=== PATIENT | female | born 1995 | race Caucasian/White ===

== ENCOUNTER 2016-04-29 14:07 | Observation (INO) | payer OTHER ==
[2016-04-29] MEDS ORDERED: Sodium Chloride 0.9% 1000 ML 1,000 ML IV SCH (15:00)
--- NOTE | 2016-04-29 15:29 | XRAY ---
Indication: Hematuria, back pain, and vomiting. Multiple contiguous axial images obtained through the abdomen and pelvis without contrast as ordered. Comparison: None Lung bases are clear. Heart is not enlarged. Noncontrasted stomach and bowel loops appear nonobstructed. Normal appendix. No free fluid/air. Remaining liver, gallbladder, pancreas, spleen, adrenal glands, kidneys, ureters, bladder, uterus, and aorta appear unremarkable for noncontrast exam. Osseous structures intact. Impression: Negative CT abdomen/pelvis without contrast exam. CT DI 9.64
--- NOTE | 2016-04-29 15:30 | XRAY ---
Indication: Hematuria, back pain, and vomiting. Comparison: None PA/lateral chest demonstrate normal heart, lungs, and bony thorax.
[2016-04-29 15:32] LABS: Mean Cell Volume 89.3 fl (78-100); Mean Corpuscular Hemoglobin 29.5 pg (26-32); Mean Platelet Volume 9.8 fl (6-9.5); Platelet Count 261 K/mm3 (150-450); Red Blood Count 4.41 M/mm3 (4.1-5.4); Red Cell Distribution Width 12.6 % (11.5-14.0); White Blood Count 12.4 K/mm3 (4.0-10.5)
[2016-04-29 15:59] LABS: ALBUMIN 3.4 g/dL (3.4-5.0); ALKALINE PHOSPHATASE 45 U/L (46-116); ANION GAP 14.2 MEQ/L (5-15); BILIRUBIN,TOTAL 0.2 mg/dL (0.2-1.0); BLOOD UREA NITROGEN 7 mg/dL (9-20); CHLORIDE 101 mEq/L (98-107); Carbon Dioxide 23.5 mEq/L (21-32); Glucose 87 MG/DL (70-110); Potassium 3.8 mEq/L (3.5-5.1); SGOT/AST 13 U/L (15-37); SODIUM 135 mEq/L (136-145); Total Protein 7.9 gm/dL (6.4-8.2)
[2016-04-29 16:09] LABS: SGPT/ALT 14 U/L (12-78)
[2016-04-29 16:28] LABS: BAND 2 % (0.0-2.0); Total Cells Counted 100
[2016-04-29 16:35] LABS: Platelet Estimate NORMAL (NORMAL)
[2016-04-29 16:37] LABS: ANISOCYTOSIS 1+
[2016-04-29] MEDS: Sodium Chloride 0.9% 1000 ML 1,000 ML IV SCH (17:47)
[2016-04-29] MEDS ORDERED: Zofran 2 MG/ML MULTI DOSE VIAL 20 ML IV PRN (17:59)
[2016-04-29] MEDS ORDERED: ROCEPHIN 1 Gm-D5w 50 ml Bag** 50 ML IV SCH (18:00)
--- NOTE | 2016-04-29 18:06 | PCM.HP ---
History of Present Illness - Chief Complaint Chief Complaint: hematuria, back pain History of Present Illness: is a 20 year old female who has been feeling ill for several weeks with a cough. For the past 3 days she has been vomiting with fever up to 102. Her cough is actually a little better. She is not toelrating much po. She noticed her urine was brown today and she came to . I was contacted and agreed with admission. Pt was c/o some R lower back pain. Pt had UA in February with RBC. - Review of Systems Constitutional: Fever, Fatigue Respiratory: Cough, Wheezing Abdominal/Gastrointestinal: Nausea, Vomiting Genitourinary Symptoms: Hematuria, Other (brown urine) Musculoskeletal: Back Pain All Other Systems: Reviewed and Negative Medications & Allergies Home Medications: Home Medication List Armodafinil [Nuvigil] 150 mg PO DAILY 04/29/16 [History Confirmed 04/29/16] Norelgestromin/Ethin.estradiol [Xulane Patch] 1 patch TOP WEEKLY 04/29/16 [ History Confirmed 04/29/16] - Past Medical History Neurological History: No Pertinent History ENT History: No Pertinent History Cardiac History: No Pertinent History Respiratory History: No Pertinent History Endocrine Medical History: No Pertinent History Musculoskelatal History: No Pertinent History GI Medical History: No Pertinent History History: No Pertinent History Pyscho-Social History: Anxiety Reproductive Disorders: No Pertinent History - Female History Hx Last Menstrual Period: 04/08/16 Are you now?: No - Past Surgical History Past Surgical History: No - Social History Smoking Status: Never smoker Alcohol: None Drug Use: none - Physical Exam Vital Signs: Vital Signs - 24 hr Temp Pulse Resp BP Pulse Ox 04/29/16 16:31 98.9 F 104 H 20 119/80 95 General Appearance: no apparent distress Neurologic Exam: alert, oriented x 3, cooperative Eye Exam: eyes nml inspection Ears, Nose, Throat Exam: other (dry lips) Neck Exam: normal inspection, supple, No lymphadenopathy Respiratory Exam: wheezing (RLL), other (good air exchange), No crackles/rales, No rhonchi Cardiovascular Exam: regular rate/rhythm, normal heart sounds, No murmur Gastrointestinal/Abdomen Exam: soft, No tenderness, No distention, No guarding, No rebound Back Exam: normal inspection, other (nttp throughout), No CVA tenderness Extremity Exam: normal inspection, No pedal edema, No swelling Skin Exam: normal color, warm, dry Results - Labs Lab/Micro Results: Lab Results-Last 24 Hours 04/29/16 04/29/16 Range/Units 15:28 15:28 WBC 12.4 H (4.0-10.5) K/mm3 RBC 4.41 (4.1-5.4) M/mm3 Hgb 13.0 (12.0-16.0) gm/dl Hct 39.4 (35-47) % MCV 89.3 (78-100) fl MCH 29.5 (26-32) pg MCHC 33.0 (32-36) g/dl RDW 12.6 (11.5-14.0) % Plt Count 261 (150-450) K/mm3 MPV 9.8 H (6-9.5) fl Segmented Neutrophils 74 H (36.0-66.0) % Band Neutrophils 2 (0.0-2.0) % Lymphocytes (Manual) 20 L (24-44) % Monocytes (Manual) 4 (0.0-12.0) % Differential Comment ABNORMAL Platelet Estimate NORMAL (NORMAL) Anisocytosis 1+ Sodium 135 L (136-145) mEq/L Potassium 3.8 (3.5-5.1) mEq/L Chloride 101 (98-107) mEq/L Carbon Dioxide 23.5 (21-32) mEq/L Anion Gap 14.2 (5-15) MEQ/L BUN 7 L (9-20) mg/dL Creatinine 0.92 (0.55-1.30) mg/dl Estimated GFR > 60 ML/MIN Glucose 87 (70-110) MG/DL Calcium 8.8 (8.5-10.1) mg/dL Total Bilirubin 0.2 (0.2-1.0) mg/dL AST 13 L (15-37) U/L ALT 14 (12-78) U/L Alkaline Phosphatase 45 L (46-116) U/L Serum Total Protein 7.9 (6.4-8.2) gm/dL Albumin 3.4 (3.4-5.0) g/dL - Radiology Impressions Radiology Exams & Impressions: Radiology Procedures Category Date Time Status ABDOMEN AND PELVIS W/0 CONTRAS [CT] Urgent Exams 04/29/16 15:04 Completed CHEST 2 VIEWS (PA AND LAT) Urgent Exams 04/29/16 15:07 Completed Assessment/Plan (1) Dehydration Current Visit: Yes Status: Acute Assessment & Plan: IV fluids overnight, labs are not bad but urine with ketones, bilirubin, etc. Code(s): E86.0 - DEHYDRATION (2) UTI (urinary tract infection) Current Visit: Yes Status: Acute Assessment & Plan: treat for UTI pending ucx. Code(s): N39.0 - URINARY TRACT INFECTION, SITE NOT SPECIFIED (3) Hematuria Current Visit: Yes Status: Acute Assessment & Plan: Will recheck UA after UTI issue is resolved. CT abd/pelvis neg for nephrolithiasis. If persistent hematuria will refer to urology. Code(s): R31.9 - HEMATURIA, UNSPECIFIED (4) Vomiting Current Visit: Yes Status: Acute Assessment & Plan: none currently. Code(s): R11.10 - VOMITING, UNSPECIFIED (5) Wheezing Current Visit: Yes Status: Acute Assessment & Plan: albuterol nebs QID while here. Code(s): R06.2 - WHEEZING
[2016-04-29] MEDS: PROVENTIL 2.5 MG/3 ML NEB IH SCH (18:42)
[2016-04-30] MEDS: PROVENTIL 2.5 MG/3 ML NEB IH SCH ×3 (00:49→12:46)
[2016-04-30] MEDS: Sodium Chloride 0.9% 1000 ML 1,000 ML IV SCH ×2 (04:32→14:57)
[2016-04-30 05:40] LABS: BASOPHIL % 0.1 % (0.0-0.4); Eosinophil % 0.3 % (0.00-5.0); Lymphocytes % 21.7 % (24.0-44.0); Mean Cell Volume 90.4 fl (78-100); Mean Platelet Volume 10.6 fl (6-9.5); Monocytes % 11.9 % (0.0-12.0); Platelet Count 230 K/mm3 (150-450); Red Blood Count 3.84 M/mm3 (4.1-5.4); Red Cell Distribution Width 12.4 % (11.5-14.0); White Blood Count 10.9 K/mm3 (4.0-10.5)
[2016-04-30 05:49] LABS: Mean Corpuscular Hemoglobin 29.6 pg (26-32)
[2016-04-30 05:59] LABS: ANION GAP 12.7 MEQ/L (5-15); BLOOD UREA NITROGEN 6 mg/dL (9-20); CHLORIDE 105 mEq/L (98-107); Glucose 78 MG/DL (70-110); Potassium 3.8 mEq/L (3.5-5.1); SODIUM 138 mEq/L (136-145)
[2016-04-30] MEDS ORDERED: Zofran 4 MG/2 ML VIAL IV PRN (06:41)
--- NOTE | 2016-04-30 08:11 | PCM.NOTE ---
Date and Time: 04/30/16 08 Subjective Assessment: Pt has tolerated jello and popsicles. Did have nausea this morning. No more vomiting, no diarrhea. No abd pain. - Review of Systems Constitutional: No Fever, No Chills Abdominal/Gastrointestinal: Nausea, No Vomiting Objective Exam General Appearance: no apparent distress Neurologic Exam: alert, oriented x 3, cooperative Skin Exam: normal color, warm, dry Respiratory Exam: normal breath sounds, lungs clear, No crackles/rales, No rhonchi, No wheezing Cardiovascular Exam: regular rate/rhythm, normal heart sounds Gastrointestinal/Abdomen Exam: soft, other (hypoactive bowel sounds), No tenderness, No distention Back Exam: normal inspection OBJECTIVE DATA Vital Signs: Vital Signs - 24 hr Temp Pulse Resp BP Pulse Ox 04/30/16 07:16 98.4 F 90 18 107/53 98 04/30/16 07:02 82 18 100 04/30/16 04:00 98.1 F 109 H 18 102/59 100 04/30/16 00:00 98.4 F 121 H 19 116/76 99 04/29/16 20:00 98.8 F 89 15 107/65 98 04/29/16 18:42 89 15 98 04/29/16 16:31 98.9 F 104 H 20 119/80 95 Pain Assessment - Last Documented Pain Scale Used 0-10 Pain Scale Intake and Output: Intake & Output 04/27/16 04/28/16 04/29/16 04/30/16 11:59 11:59 11:59 11:59 Intake Total 2376 Output Total 2300 Balance 76 Weight 58.23 kg Lab Results: Lab Results-Last 24 Hours 04/29/16 04/29/16 04/30/16 Range/Units 15:28 15:28 04:00 WBC 12.4 H (4.0-10.5) K/mm3 RBC 4.41 (4.1-5.4) M/mm3 Hgb 13.0 (12.0-16.0) gm/dl Hct 39.4 (35-47) % MCV 89.3 (78-100) fl MCH 29.5 (26-32) pg MCHC 33.0 (32-36) g/dl RDW 12.6 (11.5-14.0) % Plt Count 261 (150-450) K/mm3 MPV 9.8 H (6-9.5) fl Gran % (36.0-66.0) % Lymphocytes % (24.0-44.0) % Monocytes % (0.0-12.0) % Eosinophils % (0.00-5.0) % Basophils % (0.0-0.4) % Segmented Neutrophils 74 H (36.0-66.0) % Band Neutrophils 2 (0.0-2.0) % Lymphocytes (Manual) 20 L (24-44) % Monocytes (Manual) 4 (0.0-12.0) % Basophils # (0-0.4) Differential Comment ABNORMAL Platelet Estimate NORMAL (NORMAL) Anisocytosis 1+ Sodium 135 L 138 (136-145) mEq/L Potassium 3.8 3.8 (3.5-5.1) mEq/L Chloride 101 105 (98-107) mEq/L Carbon Dioxide 23.5 24.0 (21-32) mEq/L Anion Gap 14.2 12.7 (5-15) MEQ/L BUN 7 L 6 L (9-20) mg/dL Creatinine 0.92 0.83 (0.55-1.30) mg/dl Estimated GFR > 60 > 60 ML/MIN Glucose 87 78 (70-110) MG/DL Calcium 8.8 7.9 L (8.5-10.1) mg/dL Total Bilirubin 0.2 (0.2-1.0) mg/dL AST 13 L (15-37) U/L ALT 14 (12-78) U/L Alkaline Phosphatase 45 L (46-116) U/L Serum Total Protein 7.9 (6.4-8.2) gm/dL Albumin 3.4 (3.4-5.0) g/dL 04/30/16 Range/Units 05:10 WBC 10.9 H (4.0-10.5) K/mm3 RBC 3.84 L (4.1-5.4) M/mm3 Hgb 11.4 L (12.0-16.0) gm/dl Hct 34.7 L (35-47) % MCV 90.4 (78-100) fl MCH 29.6 (26-32) pg MCHC 32.9 (32-36) g/dl RDW 12.4 (11.5-14.0) % Plt Count 230 (150-450) K/mm3 MPV 10.6 H (6-9.5) fl Gran % 66.0 (36.0-66.0) % Lymphocytes % 21.7 L (24.0-44.0) % Monocytes % 11.9 (0.0-12.0) % Eosinophils % 0.3 (0.00-5.0) % Basophils % 0.1 (0.0-0.4) % Segmented Neutrophils (36.0-66.0) % Band Neutrophils (0.0-2.0) % Lymphocytes (Manual) (24-44) % Monocytes (Manual) (0.0-12.0) % Basophils # 0.01 (0-0.4) Differential Comment Platelet Estimate (NORMAL) Anisocytosis Sodium (136-145) mEq/L Potassium (3.5-5.1) mEq/L Chloride (98-107) mEq/L Carbon Dioxide (21-32) mEq/L Anion Gap (5-15) MEQ/L BUN (9-20) mg/dL Creatinine (0.55-1.30) mg/dl Estimated GFR ML/MIN Glucose (70-110) MG/DL Calcium (8.5-10.1) mg/dL Total Bilirubin (0.2-1.0) mg/dL AST (15-37) U/L ALT (12-78) U/L Alkaline Phosphatase (46-116) U/L Serum Total Protein (6.4-8.2) gm/dL Albumin (3.4-5.0) g/dL Radiology Exams: Radiology Procedures Category Date Time Status ABDOMEN AND PELVIS W/0 CONTRAS [CT] Urgent Exams 04/29/16 15:04 Completed CHEST 2 VIEWS (PA AND LAT) Urgent Exams 04/29/16 15:07 Completed Assessment/Plan (1) Dehydration Current Visit: Yes Status: Acute Assessment & Plan: Resolved, on IV fluids currently. Code(s): E86.0 - DEHYDRATION (2) UTI (urinary tract infection) Current Visit: Yes Status: Acute Assessment & Plan: UCx pending. Code(s): N39.0 - URINARY TRACT INFECTION, SITE NOT SPECIFIED (3) Hematuria Current Visit: Yes Status: Acute Assessment & Plan: UA pending this morning. Plan is to f/u with urology, has had hematuria since February. Code(s): R31.9 - HEMATURIA, UNSPECIFIED (4) Vomiting Current Visit: Yes Status: Resolved Code(s): R11.10 - VOMITING, UNSPECIFIED (5) Wheezing Current Visit: Yes Status: Resolved Code(s): R06.2 - WHEEZING
[2016-04-30 08:28] LABS: Collection Type VOID
[2016-04-30 08:29] LABS: COMPLETE URINE MICROSCOPIC? YES
[2016-04-30] MEDS ORDERED: NORELGESTROMIN TOP SCH (08:45)
[2016-04-30] MEDS ORDERED: ETHIN ESTRADIOL TOP SCH (08:45)
[2016-04-30] MEDS: ROCEPHIN 1 Gm-D5w 50 ml Bag** 50 ML IV SCH (09:11)
[2016-04-30 09:24] LABS: Bacteria MODERATE /HPF (NEGATIVE); Epithelial Cells FEW /HPF (FEW); Mucus SLIGHT /HPF (NEGATIVE)
[2016-04-30] MEDS ORDERED: PATIENT OWN MEDICATION TOP SCH (10:00)
[2016-04-30] MEDS ORDERED: PROVENTIL 2.5 MG/3 ML NEB IH PRN (16:10)
[2016-05-01] MEDS: Sodium Chloride 0.9% 1000 ML 1,000 ML IV SCH (00:58)
[2016-05-01 05:30] VITALS: O2SAT 98
[2016-05-01] MEDS: ROCEPHIN 1 Gm-D5w 50 ml Bag** 50 ML IV SCH (09:14)
--- NOTE | 2016-05-01 09:35 | PCM.DS ---
Discharge Summary Date of Admission: 04/29/16 14:50 Admitting Physician: BREANNA NICHOLE Primary Care Provider: BREANNA NICHOLE Allergies Allergies No Known Allergies Allergy (Verified 04/29/16 19:34) Hospital Summary - Hospital Course Hospital Course: Pt admitted with vomiting, brown urine, labs OK, hematuria present. vomiting has resolved; she tolerated po last night. NO abd pain. She is set up for outpatient urology appointment in 2 days. - Vitals & Intake/Output Vital Signs: Vital Signs Temperature 98.8 F 05/01/16 07:19 Pulse Rate 77 05/01/16 07:19 Respiratory Rate 18 05/01/16 07:19 Blood Pressure 98/58 05/01/16 07:19 O2 Sat by Pulse Oximetry 98 05/01/16 07:19 Intake & Output: Intake & Output 04/28/16 04/29/16 04/30/16 05/01/16 11:59 11:59 11:59 11:59 Intake Total 2376 2663 Output Total 2300 3000 Balance 76 -337 Weight 58.23 kg - Lab Result Diagrams: 04/30/16 05:10 04/30/16 04:00 - Radiology Exams Ordered Rad Exams-Entire Visit: Radiology Procedures Category Date Time Status ABDOMEN AND PELVIS W/0 CONTRAS [CT] Urgent Exams 04/29/16 15:04 Completed CHEST 2 VIEWS (PA AND LAT) Urgent Exams 04/29/16 15:07 Completed - Procedures and Test Procedures and Tests throughout Hospitalization: Therapy Orders & Screens 04/29/16 19:00 Respiratory Nebulizer Q6H Comment: Diagnosis: hematuria, back pain 04/29/16 19:39 Respiratory Therapy Consult ROUTINE Comment: Reason For Exam: Diagnosis: hematuria, back pain 04/30/16 16:10 Respiratory Nebulizer UD Comment: ALBUTEROL Q4PRN Diagnosis: hematuria, back pain Discharge Exam General Appearance: no apparent distress Neurologic Exam: alert, oriented x 3, cooperative Skin Exam: normal color, warm, dry Respiratory Exam: normal breath sounds, lungs clear, No crackles/rales, No rhonchi, No wheezing Cardiovascular Exam: regular rate/rhythm, normal heart sounds, No murmur Gastrointestinal/Abdomen Exam: soft, No tenderness, No distention, No mass, No guarding, No rebound Extremity Exam: No pedal edema, No swelling Back Exam: normal inspection Final Diagnosis/Problem List - Final Discharge Diagnosis/Problem (1) Dehydration Current Visit: Yes Status: Resolved (2) UTI (urinary tract infection) Current Visit: Yes Status: Acute Assessment & Plan: Home on po antibiotics. UCx pending. Use alternate form of control ( condoms) while on keflex. (3) Hematuria Current Visit: Yes Status: Acute Assessment & Plan: Pt had hematuria in February. I discussed with her that although we found this in February and asked if she was menstruating at that time (she wasn't), we did not follow up on that immediately and that was an omission on my part. (4) Vomiting Current Visit: Yes Status: Resolved (5) Wheezing Current Visit: Yes Status: Resolved - Discharge Disposition: Home, Self-Care Condition: Stable Prescriptions: New Cephalexin Mh 500 mg [Keflex 500 mg] 500 mg PO QID #20 capsule Continue Armodafinil [Nuvigil] 150 mg PO DAILY Norelgestromin/Ethin.estradiol [Xulane Patch] 1 patch TOP WEEKLY Follow up with: BREANNA NICHOLE [Primary Care Provider] - 1 Week CARMELA CHEUNG NP [NON-STAFF PHY W/O PRIVILEGES] - 05/03/16 9:30 am
[2016-05-01 10:56] VITALS: BP 108/66; PULSE 87
== END 2016-05-01 11:08 | disposition home or self-care (01) ==
LOC: MED SURG 14:50
PROVIDERS: ADMIT Family Medicine; ATTEND Family Medicine
DX: E86.0 Dehydration (principal); N39.0 Urinary tract infection, site not specified; R06.2 Wheezing; F41.9 Anxiety disorder, unspecified
CPT/HCPCS: 36415; 71020; 74176; 80048; 80053; 81000; 85025; 87086; 94640; 94760; G0378; J0696; J2405

== ENCOUNTER 2018-02-16 16:36 | Emergency (ER) | payer BC, OTHER ==
[2018-02-16] MEDS ORDERED: Zofran 4 MG/2 ML VIAL IV ONE (17:06)
[2018-02-16] MEDS ORDERED: MORPHINE SULFATE 4 MG INJ IV ONE (17:06)
[2018-02-16] MEDS ORDERED: Sodium Chloride 0.9% 1000 ML 1,000 ML IV STA (17:06)
--- NOTE | 2018-02-16 17:11 | ERPHSYRPT ---
- History of Present Illness Time Seen by Provider: 02/16/18 17:02 Historian: patient Exam Limitations: no limitations Patient Subjective Stated Complaint: diarrhea and lower abd pain since last wed Triage Nursing Assessment: ambulated to room per self. skin w/d, color normal. abd soft but distended. hyperactive bowel sounds throughout. denies any urinary difficulty. Physician History: 22-year-old white female arrives with complaint of lower abdominal pain bilateral and loose stools symptoms since 5 days. She states she vomited one time. Patient has not had any fevers. Past medical history includes anxiety. Past surgical history negative. Social history denies tobacco alcohol or illicit drug use. Timing/Duration: day(s) (5 days) Activities at Onset: none Quality: cramping Abdominal Pain Onset Location: other (bilateral lower abdomen) Pain Radiation: no radiation Severity of Pain-Max: moderate Severity of Pain-Current: moderate Modifying Factors: Improves With: nothing Associated Symptoms: diarrhea, nausea, vomiting, No back, No chest pain, No diaphoresis, No fever/chills, No fatigue, No headache, No heartburn, No loss of appetite, No neck pain, No rash, No shortness of breath, No syncope Previous symptoms: no prior history Allergies/Adverse Reactions: No Known Allergies Allergy (Verified 02/16/18 16:43) Home Medications: Bupropion HCl 150 mg Sr [Wellbutrin SR 150 MG] 150 mg PO DAILY 02/16/18 [ History] Hydroxyzine HCl 25 mg [Atarax 25 mg] 25 mg PO DAILY 02/16/18 [History] Hx Tetanus, Diphtheria Vaccination/Date Given: No Hx Influenza Vaccination/Date Given: Yes Hx Pneumococcal Vaccination/Date Given: No - Review of Systems Constitutional: No Fever, No Chills Eyes: No Symptoms Ears, Nose, & Throat: No Symptoms Respiratory: No Cough, No Dyspnea Cardiac: No Chest Pain, No Edema, No Syncope Abdominal/Gastrointestinal: Abdominal Pain, Nausea, Vomiting, Diarrhea, No Constipation, No Hematemesis, No Hematochezia, No Melena, No Dysphagia, No Appetite Changes Genitourinary Symptoms: No Dysuria Musculoskeletal: No Back Pain, No Neck Pain Skin: No Rash Neurological: No Dizziness, No Focal Weakness, No Sensory Changes Psychological: No Symptoms Endocrine: No Symptoms All Other Systems: Reviewed and Negative - Past Medical History Pertinent Past Medical History: Yes Neurological History: No Pertinent History ENT History: No Pertinent History Cardiac History: No Pertinent History Respiratory History: No Pertinent History Endocrine Medical History: No Pertinent History Musculoskeletal History: No Pertinent History GI Medical History: No Pertinent History History: No Pertinent History Psycho-Social History: Anxiety Female Reproductive Disorders: No Pertinent History - Past Surgical History Past Surgical History: No - Social History Smoking Status: Never smoker Exposure to second hand smoke: Yes Drug Use: none Patient Lives Alone: No - Female History Hx Last Menstrual Period: 02/09/18 Hx Now: (unsure) - Nursing Vital Signs Nursing Vital Signs: Initial Vital Signs Temperature 98.2 F 02/16/18 16:42 Pulse Rate 91 H 02/16/18 16:42 Respiratory Rate 16 02/16/18 16:42 Blood Pressure 138/88 02/16/18 16:42 O2 Sat by Pulse Oximetry 97 02/16/18 16:42 Pain Scale Pain Intensity 5 - Physical Exam General Appearance: mild distress Eye Exam: PERRL/EOMI, eyes nml inspection Ears, Nose, Throat Exam: normal ENT inspection, pharynx normal, moist mucous membranes Neck Exam: normal inspection, non-tender, supple, full range of motion Respiratory Exam: normal breath sounds, lungs clear, No respiratory distress Cardiovascular Exam: regular rate/rhythm, normal heart sounds, normal peripheral pulses, capillary refill <2 sec Gastrointestinal/Abdomen Exam: other (abdomen soft, mildly distended, positive bowel sounds, no focal tenderness) Back Exam: normal inspection, normal range of motion, No CVA tenderness, No vertebral tenderness Extremity Exam: normal inspection, normal range of motion, pelvis stable Neurologic Exam: alert, oriented x 3, cooperative, contracts representative II-XII nml as tested, normal mood/affect, nml cerebellar function, sensation nml, No motor deficits Skin Exam: normal color, warm, dry SpO2 Interpretation: normal (97%) SpO2: 97 Oxygen Delivery: Room Air - Course Nursing assessment & vital signs reviewed: Yes - CT Exams Abdomen/Pelvis CT Interpretation: Discussed w/radiologist (CT abdomen and pelvis: Impression 1 stable negative abdomen/pelvis compared September 09, 2016, 2. 2 cm left ovarian cyst) Ordered Tests: Active Orders 24 hr Category Date Time Status IV Insertion STAT Care 12/10/18 17:06 Active ABDOMEN AND PELVIS W CONTRAST [CT] Stat Exams 02/16/18 18:30 Taken AMYLASE Stat Lab 02/16/18 17:00 Completed CBC W DIFF Stat Lab 02/16/18 17:00 Completed CMP Stat Lab 02/16/18 17:00 Completed HCG QUALITATIVE,SERUM Stat Lab 02/16/18 Completed LIPASE Stat Lab 02/16/18 17:00 Completed UA W/RFX UR CULTURE Stat Lab 02/16/18 18:14 Completed Medication Summary Discontinued Medications Generic Name Dose Route Start Last Admin Trade Name Freq PRN Reason Stop Dose Admin Sodium Chloride 1,000 mls @ 999 mls/hr 02/16/18 17:06 02/16/18 18:06 Sodium Chloride 0.9% 1000 Ml IV 02/16/18 18:06 999 mls/hr .Q1H1M STA Administration Sodium Chloride Confirm 02/16/18 18:03 Sodium Chloride 0.9% 1000 Ml Administered 02/16/18 18:04 Dose 1,000 mls @ ud .ROUTE .STK-MED ONE Morphine Sulfate 4 mg 02/16/18 17:06 02/16/18 18:06 Morphine Sulfate 4 Mg Inj IV 02/16/18 17:07 4 mg STAT ONE Administration Morphine Sulfate Confirm 02/16/18 18:03 Morphine Sulfate 4 Mg Inj Administered 02/16/18 18:04 Dose 4 mg .ROUTE .STK-MED ONE Ondansetron HCl 4 mg 02/16/18 17:06 02/16/18 18:07 Zofran 4 Mg/2 Ml Vial IV 02/16/18 17:07 4 mg STAT ONE Administration Ondansetron HCl Confirm 02/16/18 18:03 Zofran 4 Mg/2 Ml Vial Administered 02/16/18 18:04 Dose 4 mg .ROUTE .STK-MED ONE Lab/Rad Data: Laboratory Result Diagrams 02/16/18 17:00 02/16/18 17:00 Laboratory Results 02/16/18 02/16/18 02/16/18 Range/Units Unknown 18:14 17:00 WBC (4.0-10.5) K/mm3 RBC (4.1-5.4) M/mm3 Hgb (12.0-16.0) gm/dl Hct (35-47) % MCV (78-100) fl MCH (26-32) pg MCHC (32-36) g/dl RDW (11.5-14.0) % Plt Count (150-450) K/mm3 MPV (6-9.5) fl Gran % (36.0-66.0) % Eos # (Auto) (0-0.5) Absolute Lymphs (auto) (1.0-4.6) Absolute Monos (auto) (0.0-1.3) Lymphocytes % (24.0-44.0) % Monocytes % (0.0-12.0) % Eosinophils % (0.00-5.0) % Basophils % (0.0-0.4) % Absolute Granulocytes (1.4-6.9) Basophils # (0-0.4) Sodium 140 (137-145) mmol/L Potassium 3.5 (3.5-5.1) mmol/L Chloride 106 (98-107) mmol/L Carbon Dioxide 24 (22-30) mmol/L Anion Gap 14.3 (5-15) MEQ/L BUN 13 (7-17) mg/dL Creatinine 0.60 (0.52-1.04) mg/dL Estimated GFR > 60.0 ML/MIN Glucose 102 (74-106) mg/dL Calcium 9.2 (8.4-10.2) mg/dL Total Bilirubin 0.40 (0.2-1.3) mg/dL AST 20 (14-36) U/L ALT 17 (0-35) U/L Alkaline Phosphatase 59 (38-126) U/L Serum Total Protein 8.0 (6.3-8.2) g/dL Albumin 4.5 (3.5-5.0) g/dL Amylase 76 (30-110) U/L Lipase 58 (23-300) U/L Serum , Qual NEGATIVE (Negative) Urine Color YELLOW (YELLOW) Urine Appearance SLIGHTLY CLOUDY (CLEAR) Urine pH 6.0 (5-6) Ur Specific [place] 1.020 (1.005-1.025) Urine Protein NEGATIVE (Negative) Urine Ketones NEGATIVE (NEGATIVE) Urine Blood MODERATE (0-5) Oral/ul Urine Nitrite NEGATIVE (NEGATIVE) Urine Bilirubin NEGATIVE (NEGATIVE) Urine Urobilinogen 2 (0-1) mg/dL Ur Leukocyte Esterase NEGATIVE (NEGATIVE) Urine WBC (Auto) 3-5 (0-5) /HPF Urine RBC (Auto) 6-10 (0-2) /HPF U Epithel Cells (Auto) RARE (FEW) /HPF Urine Bacteria (Auto) NONE SEEN (NEGATIVE) /HPF Urine Culture Reflexed NO (NO) Urine Glucose NEGATIVE (NEGATIVE) mg/dL 02/16/18 Range/Units 17:00 WBC 10.7 H (4.0-10.5) K/mm3 RBC 4.75 (4.1-5.4) M/mm3 Hgb 14.3 (12.0-16.0) gm/dl Hct 43.0 (35-47) % MCV 90.5 (78-100) fl MCH 30.1 (26-32) pg MCHC 33.3 (32-36) g/dl RDW 12.3 (11.5-14.0) % Plt Count 261 (150-450) K/mm3 MPV 10.0 H (6-9.5) fl Gran % 75.3 H (36.0-66.0) % Eos # (Auto) 0.14 (0-0.5) Absolute Lymphs (auto) 1.45 (1.0-4.6) Absolute Monos (auto) 1.03 (0.0-1.3) Lymphocytes % 13.6 L (24.0-44.0) % Monocytes % 9.7 (0.0-12.0) % Eosinophils % 1.3 (0.00-5.0) % Basophils % 0.1 (0.0-0.4) % Absolute Granulocytes 8.04 H (1.4-6.9) Basophils # 0.01 (0-0.4) Sodium (137-145) mmol/L Potassium (3.5-5.1) mmol/L Chloride (98-107) mmol/L Carbon Dioxide (22-30) mmol/L Anion Gap (5-15) MEQ/L BUN (7-17) mg/dL Creatinine (0.52-1.04) mg/dL Estimated GFR ML/MIN Glucose (74-106) mg/dL Calcium (8.4-10.2) mg/dL Total Bilirubin (0.2-1.3) mg/dL AST (14-36) U/L ALT (0-35) U/L Alkaline Phosphatase (38-126) U/L Serum Total Protein (6.3-8.2) g/dL Albumin (3.5-5.0) g/dL Amylase (30-110) U/L Lipase (23-300) U/L Serum , Qual (Negative) Urine Color (YELLOW) Urine Appearance (CLEAR) Urine pH (5-6) Ur Specific [place] (1.005-1.025) Urine Protein (Negative) Urine Ketones (NEGATIVE) Urine Blood (0-5) Oral/ul Urine Nitrite (NEGATIVE) Urine Bilirubin (NEGATIVE) Urine Urobilinogen (0-1) mg/dL Ur Leukocyte Esterase (NEGATIVE) Urine WBC (Auto) (0-5) /HPF Urine RBC (Auto) (0-2) /HPF U Epithel Cells (Auto) (FEW) /HPF Urine Bacteria (Auto) (NEGATIVE) /HPF Urine Culture Reflexed (NO) Urine Glucose (NEGATIVE) mg/dL - Progress Progress: improved Progress Note: 02/16/18 19:10 22-year-old white female arrives with complaint of lower abdominal pain bilateral for 4 days she states she vomited one time she states she's had diarrhea. On physical examination she had doesn't appear to be overtly tender initially but on recheck she is tender in the suprapubic region. She does give a history of eating deer meat last week however she states she cooked the meat well. Patient's labs essentially stable urinalysis a few red cells otherwise negative. White count is slightly elevated 10.7. I have ordered a CT of the abdomen to rule out appendicitis. I have offered to obtain stool cultures on this patient but she states she will not be able to provide a stool at this time. Anticipate discharge if CT of the abdomen normal. Clear fluids. Follow-up with family doctor if symptoms persist more than 2-3 more days. 02/16/18 19:48 CT abdomen and pelvis 2 cm left ovarian cyst otherwise stable abdomen/ pelvis as compared to September. Will release - Departure Time of Disposition: 19:49 Departure Disposition: Home Clinical Impression: Abdominal pain Qualifiers: Abdominal location: lower abdomen, unspecified Qualified Code(s): R10.30 - Lower abdominal pain, unspecified Diarrhea Qualifiers: Diarrhea type: unspecified type Qualified Code(s): R19.7 - Diarrhea, unspecified Condition: Fair Critical Care Time: No Referrals: BREANNA NICHOLE [Primary Care Provider] - Additional Instructions: Return home. Plenty of fluids clear fluids only 24-48 hours if abdominal pain, nausea, vomiting or diarrhea. Aneta 5/325 #10 one orally every 4-6 hours as needed for pain. Follow-up with your family doctor if symptoms no better in 24-48 hours or persist longer than 72 hours. Return for acute distress or for severe symptoms. Prescriptions: Hydrocodone/Acetaminophen [Aneta 5-325 Tablet] 1 tab PO Q4-6HPRN PRN #10 tablet MDD 6 tablets PRN Reason: Pain
[2018-02-16 17:46] LABS: BASOPHIL % 0.1 % (0.0-0.4); Basophil (Absolute #) 0.01 (0-0.4); Eosinophil % 1.3 % (0.00-5.0); Eosinophil (Absolute #) 0.14 (0-0.5); Granulocyte Absolute (ANC) 8.04 (1.4-6.9); Granulocytes % 75.3 % (36.0-66.0); Hemoglobin 14.3 gm/dl (12.0-16.0); Lymphocyte (Absolute #) 1.45 (1.0-4.6); Lymphocytes % 13.6 % (24.0-44.0); Mean Cell Volume 90.5 fl (78-100); Mean Corpuscular Hemoglobin 30.1 pg (26-32); Mean Corpuscular Hgb Concent. 33.3 g/dl (32-36); Monocyte (Absolute #) 1.03 (0.0-1.3); Monocytes % 9.7 % (0.0-12.0); Platelet Count 261 K/mm3 (150-450); Red Blood Count 4.75 M/mm3 (4.1-5.4); Red Cell Distribution Width 12.3 % (11.5-14.0); White Blood Count 10.7 K/mm3 (4.0-10.5)
[2018-02-16 17:58] LABS: ALBUMIN 4.5 g/dL (3.5-5.0); ALKALINE PHOSPHATASE 59 U/L (38-126); AMYLASE 76 U/L (30-110); ANION GAP 14.3 MEQ/L (5-15); BLOOD UREA NITROGEN 13 mg/dL (7-17); CHLORIDE 106 mmol/L (98-107); Calcium 9.2 mg/dL (8.4-10.2); Carbon Dioxide 24 mmol/L (22-30); Glucose 102 mg/dL (74-106); LIPASE 58 U/L (23-300); Potassium 3.5 mmol/L (3.5-5.1); SGOT/AST 20 U/L (14-36); SGPT/ALT 17 U/L (0-35); SODIUM 140 mmol/L (137-145)
[2018-02-16] MEDS ORDERED: Zofran 4 MG/2 ML VIAL ONE (18:03)
[2018-02-16] MEDS ORDERED: MORPHINE SULFATE 4 MG INJ ONE (18:03)
[2018-02-16] MEDS ORDERED: Sodium Chloride 0.9% 1000 ML 1,000 ML ONE (18:03)
[2018-02-16 18:28] LABS: Appearance SLIGHTLY CLOUDY (CLEAR); Bilirubin NEGATIVE (NEGATIVE); Blood MODERATE Ery/ul (0-5); Glucose NEGATIVE (NEGATIVE); Ketones NEGATIVE (NEGATIVE); Leukocyte Esterase NEGATIVE (NEGATIVE); Nitrite NEGATIVE (NEGATIVE); Protein,Urine Dip NEGATIVE (Negative); Urobilinogen 2 mg/dL (0-1)
[2018-02-16] MEDS ORDERED: NORCO 5/325 MG PO ONE (19:51)
[2018-02-16] MEDS ORDERED: NORCO 5/325 MG ONE (20:07)
[2018-02-16 20:39] VITALS: BP 118/79; PULSE 74; O2SAT 98
--- NOTE | 2018-02-17 09:01 | XRAY ---
Indication: Lower abdominal pain. Runny stools. Multiple contiguous axial images obtained through the abdomen and pelvis using 80 cc Isovue 370 contrast only. Comparison: September 09, 2016. Lung bases remain clear. Heart is not enlarged. Stomach is again distended with food/fluid. Noncontrasted stomach and bowel loops appear nonobstructed. Normal appendix. Mild fecal debris in the ascending colon and lesser degree transverse colon. New 2 cm left ovary cyst. No free fluid/air. Remaining liver, gallbladder, pancreas, spleen, adrenal glands, kidneys, ureters, bladder, uterus, and aorta appear normal in CT appearance and attenuation. No pathologic retroperitoneal lymphadenopathy. Osseous structures intact. No ventral or inguinal hernias. Impression: 1. New 2 cm left ovary cyst. 2. Remaining CT abdomen/pelvis with contrast exam is negative. CT DI 9.74
== END 2018-02-16 20:39 | disposition home or self-care (01) ==
LOC: ED 16:36
DX: R10.32 Left lower quadrant pain (principal); R10.31 Right lower quadrant pain; R19.7 Diarrhea, unspecified; R11.2 Nausea with vomiting, unspecified; Z79.899 Other long term (current) drug therapy; N83.202 Unspecified ovarian cyst, left side
CPT/HCPCS: 36000; 36415; 74177; 80053; 81001; 81025; 82150; 83690; 85025; 96374; 96375; 99284; J2270; J2405; A9270-GY

== ENCOUNTER 2019-01-15 14:23 | Observation (INO) | payer OTHER ==
[2019-01-15 16:47] VITALS: BP 135/85; PULSE 104
[2019-01-15 17:04] LABS: Amphetamine,Urine NEGATIVE (NEGATIVE); Barbiturate,Urine NEGATIVE (NEGATIVE); Benzodiazepine,Urine NEGATIVE (NEGATIVE); Cocaine,Urine NEGATIVE (NEGATIVE); Methadone,Urine NEGATIVE (NEGATIVE); Opiate,Urine NEGATIVE (NEGATIVE); PCP,Urine NEGATIVE (NEGATIVE); THC,Urine NEGATIVE (NEGATIVE)
== END 2019-01-15 17:20 | disposition home or self-care (01) ==
LOC: OB 14:23
PROVIDERS: ADMIT Family Medicine; ATTEND Family Medicine
DX: Z34.02 Encounter for supervision of normal first pregnancy, second trimester (principal)
CPT/HCPCS: 80307; G0378